=== PATIENT | female | born 1940 | race Caucasian/White ===

== ENCOUNTER 2017-01-09 06:03 | Inpatient (IN) | payer MEDICARE, OTHER ==
[2017-01-03 13:44] LABS: HEMOGLOBIN 12.3 g/dL (12.0-16.0)
[2017-01-03 13:46] LABS: HEMATOCRIT 37.7 % (36.0-48.0)
[2017-01-03 13:59] LABS: BUN (BLOOD UREA NITROGEN) 21 MG/DL (6-23); CALCIUM, SERUM 9.2 MG/DL (8.5-10.4); CHLORIDE, SERUM 107 MMOL/L (96-112); CO2 (CARBON DIOXIDE) 30 MMOL/L (24-34); CREATININE 0.96 MG/DL (0.55-1.02); GFR AFRICAN AMERICAN 67 ML/MIN (>=60); GFR NON AFRICAN AMERICAN 57 ML/MIN (>=60); GLUCOSE, SERUM 132 MG/DL (60-99); POTASSIUM, SERUM 4.3 MMOL/L (3.5-5.3); SODIUM, SERUM 145 MMOL/L (135-148)
--- NOTE | ~2017-01-09 | OP ---
Record Of Operation [facility] [address] [place]. [address] NAME: MARLENA MUKHERJEE : 40 STATUS : ADM IN PAT#: [id number] AGE: 76 ADM/REG DATE : 01/09/17 MR#: [id number] REPORT SERV DATE: 01/09/17 DICTATED BY: TAN ESTRADA DATE: 01/09/17 REPORT STATUS : Draft TRANSCRIBED BY: MODL DATE: 01/09/17 DATE OF PROCEDURE: 01/09/2017 PREOPERATIVE DIAGNOSIS: Sessile serrated adenoma, ileocecal area. POSTOPERATIVE DIAGNOSIS: Sessile serrated adenoma, ileocecal area. PROCEDURE: Laparoscopic-assisted ileocecal resection with primary anastomosis. DESCRIPTION OF OPERATIVE PROCEDURE: The patient was brought to the operating suite, placed in supine position, underwent satisfactory general endotracheal anesthesia without incident. The skin of the abdomen was scrubbed, prepped, and draped in usual sterile fashion. 0.5% Marcaine with epinephrine was utilized as supplemental local anesthesia at all intended trocar sites. Initially, an infraumbilical incision was performed dissecting through the skin and subcutaneous tissue to the umbilical fascia this was grasped with a Nader clamp and elevated. A disposable Veress insufflation needle was inserted through the umbilical fascia into the peritoneal cavity. The intraperitoneal tip location was next ascertained using the saline hanging drop method. Following this, CO2 was insufflated for pressures of 15 mmHg throughout the case. After adequate insufflation pressure achieved, Veress needle was removed, disposable bladed/shielded 12 mm trocar inserted through the umbilical fascia in the peritoneal cavity following which a rigid forward-viewing 10 mm laparoscope was inserted. Visualization of the intra-abdominal parietes revealed no evidence of injury from initial insufflation or puncture. Two additional trocars were established under direct visualization. A 5 mm one through McBurney's point in the right lower quadrant and an additional 5 mm trocar in the supraumbilical midline. The camera was switched to the supraumbilical midline, 5 mm camera. The patient was placed in Trendelenburg position. Mobilization of the ileocecal region as well as the right colon was performed with Harmonic scalpel elevating the ileocecum on its vascular pedicle. Then, laparoscopy was terminated and a Ricardo-Ricardo incision was made through McBurney's point dividing the anterior and posterior rectus fascia but retracting the right rectus muscle itself without violating it. The peritoneal cavity was entered. The ileocecum was eviscerated. It was difficult to palpate the soft sessile polyp in the ileocecal area, therefore, a colotomy was performed through the antimesenteric tenia and I could view the flat polyp at the appendiceal orifice. The colotomy was closed with running, locking 3-0 Vicryl. Proximal and distal transection of the bowel was performed with a BRITANY-75 linear stapler. Proximal transection was in the ileum just proximal to the ileocecal valve. Distal transection was through the colon just above the cecum. Mesentery was taken down between free ties of 2-0 Vicryl and Harmonic scalpel and given to Dr. Samaniego to confirm adequate Record Of Operation [address] [address] NAME: MARLENA MUKHERJEE : 40 STATUS : ADM IN [facility]#: [id number] AGE: 76 ADM/REG DATE : 01/09/17 MR#: [id number] REPORT SERV DATE: 01/09/17 DICTATED BY: TAN ESTRADA DATE: 01/09/17 REPORT STATUS : Draft TRANSCRIBED BY: ALFREDO DATE: 01/09/17 resection of the actual polyp. Bowel continuity was re-established in a [id number] stapled fashion. The antimesenteric portions of the proximal and distal bowel were lined up and a U-stitch of 3-0 Vicryl was utilized. Enterotomies were created through the previous staple line through which it was plastied, the BRITANY-75 linear stapler. The antimesenteric portions of the small bowel and the colon were lined up. The staple was closed and actuated completing a xukp-kf-dier 75 mm anastomosis. The enterotomy created for insertion of the BRITANY-75 was closed with TL-60 after approximating the edges of the bowel with Vicryl. Finally, the mesentery was closed with running, locking 3-0 Vicryl. The operative site was irrigated copiously and then the posterior rectus sheath was closed with running, locking 0 Vicryl following which the anterior rectus sheath was closed with interrupted [id number] sutures of 0 Vicryl after irrigating between layers. Subcutaneous tissues were closed in two layers with interrupted 3-0 Vicryl and running subcuticular stitch of 4-0 Vicryl for the skin. The umbilicus was closed at the fascia level with 0 Vicryl and then all sites were closed subcutaneously with interrupted 4-0 Vicryl and running subcuticular stitch of 4-0 Vicryl for the skin. Dermabond skin adhesive was placed. The patient tolerated the procedure well and was returned to PACU in stable condition. At the termination of procedure, sponge, needle, lap, and instrument counts were correct x3. ESTIMATED BLOOD LOSS: Less than 10 mL. WR/MODL Tan Estrada M.D. / [id number] CC: Tan Estrada M.D.
[~2017-01-09 06:03] MED LIST: ARTHROTEC 75 PO; ASAB PO; BENICAR20 PO; BENICAR40 PO; CITRACAL PO; CRESTOR10 PO; EVISTA60 PO; LEVOTHYROXIN125 MCG PO; SINGULAIR1 PO; ZYRTEC ALLGY10 MG PO
[2017-01-10 06:34] LABS: BASOPHILS 0 %; EOSINOPHILS 0 %; HEMATOCRIT 32.9 % (36.0-48.0); HEMOGLOBIN 10.9 g/dL (12.0-16.0); IMMATURE GRANULOCYTES 0.2 %; IMMATURE GRANULOCYTES ABSOLUTE 0.02 10/3/uL (0.0-0.11); LYMPHOCYTES 9.5 %; LYMPHOCYTES ABSOLUTE 0.85 10/3/uL (0.67-4.30); MANUAL DIFF NO %; MEAN CORPUS HGB CONC 33.1 g/dL (32.0-36.0); MEAN CORPUSCULAR HEMOGLOB 29.1 pg (26.0-34.0); MEAN CORPUSCULAR VOLUME 87.7 fL (80-100); MONOCYTES 6.8 %; MONOCYTES ABSOLUTE 0.61 10/3/uL (0.21-1.20); NEUTROPHILS 83.5 %; NEUTROPHILS ABSOLUTE 7.48 10/3/uL (2.02-8.40); PLATELET COUNT 202 10/3/uL (150-400); RBC DISTRIBUTION WIDTH 14.1 % (12.0-16.0); RED CELL COUNT 3.75 10/6/uL (4.0-5.6)
[2017-01-10 06:46] LABS: CALCIUM, SERUM 8.6 MG/DL (8.5-10.4); CHLORIDE, SERUM 109 MMOL/L (96-112); CREATININE 0.92 MG/DL (0.55-1.02); GFR AFRICAN AMERICAN 70 ML/MIN (>=60); GFR NON AFRICAN AMERICAN 60 ML/MIN (>=60); GLUCOSE, SERUM 137 MG/DL (60-99); POTASSIUM, SERUM 4.6 MMOL/L (3.5-5.3); SODIUM, SERUM 139 MMOL/L (135-148)
[2017-01-10 06:51] LABS: BUN (BLOOD UREA NITROGEN) 10 MG/DL (6-23); CO2 (CARBON DIOXIDE) 25 MMOL/L (24-34)
[2017-01-10] MEDS ORDERED: NORCO1 TA1 PO (14:08)
== END 2017-01-10 17:53 | disposition home or self-care (01) | DRG 331 ==
LOC: SDC/OF 06:03 → PACU 11:06 → 5SO 12:14
PROVIDERS: Specialist
PROC: 0DBB0ZZ Excision of Ileum, Open Approach (ICD-10-PCS; 2017-01-09)
PROC: 0DBH0ZZ Excision of Cecum, Open Approach (ICD-10-PCS; principal; 2017-01-09 07:45)
DX: D12.0 Benign neoplasm of cecum (principal); I34.0 Nonrheumatic mitral (valve) insufficiency; I10 Essential (primary) hypertension; G47.33 Obstructive sleep apnea (adult) (pediatric); E03.9 Hypothyroidism, unspecified; Z88.5 Allergy status to narcotic agent; Z79.899 Other long term (current) drug therapy
CPT/HCPCS: 80048; 85014; 85018; 85025; 88309; 93005; A9270-GY; J0690; J1885; J2250; J2710; J2795; J3010